=== PATIENT | male | born 2005 | race Caucasian/White ===

== ENCOUNTER 2024-06-12 09:36 | Emergency (ER) | payer BC, SELFPAY ==
[2024-06-12 09:40] VITALS: BP 138/49; PULSE 79; RESP 16; TEMP 37.3; O2SAT 99; BMI 21.6
[2024-06-12 09:54] LABS: Appearance Urine Clear (Clear); Bilirubin Urine Negative (Negative); Blood Urine Trace-intact (Negative); Color Urine Yellow (Yellow); Glucose Urine Negative (Negative); Ketones Urine Negative (Negative); Leukocyte Esterase Urine Negative (Negative); Nitrite Urine Negative (Negative); Protein Urine Negative (Negative); Specific Gravity Urine 1.015 (1.000-1.030); Urobilinogen Urine 0.2 (0.2-1.0)
--- NOTE | 2024-06-12 09:56 | ED_ITS ---
HPI - General Adult General Chief complaint: Urogenital Problems, Male Stated complaint: Blood in urine with pain Time Seen by Provider: 06/12/24 09:46 History of Present Illness HPI narrative: This 18-year-old male comes in reporting dysuria symptoms including pain with voiding urine and now reports hematuria. He reports some pain up into his abdomen also. He states that he did have some nausea with 1 vomiting episode. He does not have any personal or family history of kidney stones that he knows of. He has otherwise been in good health. Related Data Home Medications ?Medication ?Instructions ?Recorded ?Confirmed omeprazole 20 mg capsule,delayed 20 mg PO DAILY 06/12/24 06/12/24 release sucralfate 1 gram tablet 1 g PO QID 06/12/24 06/12/24 Previous Rx's ?Medication ?Instructions ?Recorded ketorolac 10 mg tablet 10 mg PO Q8H 5 days #15 tabs 06/12/24 ondansetron HCl 4 mg tablet 4 mg PO Q6H #10 tabs 06/12/24 Allergies Allergy/AdvReac Type Severity Reaction Status Date / Time amoxicillin Allergy Intermediate Verified 06/12/24 09:43 Review of Systems Status of ROS: Reports: 10 or more systems reviewed and unremarkable except as noted in History and below Narrative: Constitutional: No fevers, no weight gain or loss. Eyes: No discharge. No vision changes. HENT: No congestion, no sore throat, no ear pain. Cardiovascular: No chest pain, no palpitations. Respiratory: No shortness of breath, no wheezes, no cough. Gastrointestinal: No diarrhea. Abdominal pain with nausea and vomiting. Genitourinary: Increased frequency with hematuria. Musculoskeletal: Normal range of motion. Skin: No rashes, no pruritis. Neurological: No dizziness, weakness, sensory change, speech change. Endo/Heme/Allergies: No bruising or bleeding. No polydipsia. Pysch: no suicidality, no anxiety, no insomnia. All other systems reviewed and are negative. PFSH PFSH Social History Smoking Status: Current every day smoker How often do you have a drink containing alcohol: never AUDIT-C Alcohol total score: 0 Non-prescribed substance use: marijuana (any form) Exam Narrative: Exam Narrative: Constitutional: Well-developed, well-nourished, no acute distress. HEENT: Normocephalic, atraumatic. Neck: Normal range of motion. Nontender. Supple. Heart: Regular. No murmurs. Normal rate. Intact distal pulses. Lungs: Clear to auscultation. No chest discomfort. No wheezes, rhonchi, or rales. Abdomen: Normal bowel sounds. Lower abdominal pain. No rebound tenderness. Genitalia: Deferred. Back: No midline tenderness. Normal range of motion. Extremities: Normal range of motion. No injury. Skin: Intact. No rash. Warm. No erythema or pallor. Neurologic: No altered sensation. No weakness. Alert and oriented. Psychiatric: No suicidality. No anxiety or depression. No insomnia. Nursing notes and vitals signs are reviewed. Const: Vital Signs, click to edit/add: Vital Signs - 24 hr 06/12/24 09:40 Temperature 99.1 F Pulse Rate [Pulse Oximeter] 79 Respiratory Rate 16 Blood Pressure [Ri ght Upper Arm] 138/49 L Pulse Oximetry 99 Oxygen Delivery Me thod Room Air Course Vital Signs Vital signs: Initial Vital Signs Temperature 99.1 F 06/12/24 09:40 Temperature Source Temporal Artery Scan 06/12/24 09:40 Pulse Rate 79 06/12/24 09:40 Respiratory Rate 16 06/12/24 09:40 Blood Pressure 138/49 L 06/12/24 09:40 Blood Pressure Mean 78 06/12/24 09:40 Blood Pressure Position Supine 06/12/24 09:40 Pulse Oximetry 99 06/12/24 09:40 Oxygen Delivery Method Room Air 06/12/24 09:40 Vital Signs Temperature 99.1 F 06/12/24 09:40 Pulse Rate 79 06/12/24 09:40 Respiratory Rate 16 06/12/24 09:40 Blood Pressure 138/49 L 06/12/24 09:40 Pulse Oximetry 99 06/12/24 09:40 Oxygen Delivery Method Room Air 06/12/24 09:40 Temperature 99.1 F 06/12/24 09:40 Pulse Rate 79 06/12/24 09:40 Respiratory Rate 16 06/12/24 09:40 Blood Pressure 138/49 L 06/12/24 09:40 Pulse Oximetry 99 06/12/24 09:40 Oxygen Delivery Method Room Air 06/12/24 09:40 Medical Decision Making MDM Narrative Medical decision making narrative: This patient comes in reporting abdominal pain and did have some hematuria a about midway through voiding urine this morning. Urinalysis here shows no sign of infection or microscopic hematuria. He does not have a history of kidney stones. He it does report abdominal pain and states that he has pain down into his scrotum. On exam he is not showing any signs or symptoms that are suspicious for torsion. He did have CT scan of the abdomen and pelvis and this returns also with reassuring findings. This patient is okay to be discharged home. I did describe signs or symptoms that if they should occur he should return for re-evaluation. I did provide a prescription for Toradol and Zofran. Lab Data Labs: Lab Results 06/12/24 Range/Units 09:47 Urine Color Yellow (Yellow) Urine Appearance Clear (Clear) Urine pH 7.0 (5.0-8.5) Ur Specific [place] 1.015 (1.000-1.030) Urine Protein Negative (Negative) Urine Glucose (UA) Negative (Negative) Urine Ketones Negative (Negative) Urine Blood Trace-intact A (Negative) Urine Nitrite Negative (Negative) Urine Bilirubin Negative (Negative) Urine Urobilinogen 0.2 (0.2-1.0) Ur Leukocyte Esterase Negative (Negative) Urine RBC 0-2 (0-2) Urine WBC 0-2 (0-5) Ur Squamous Epith Cells Few (None-Few) Urine Bacteria None (None) Imaging Data CT scan - abdomen: Radiologist's impression: Trace free fluid in the pelvis of uncertain etiology, but can be a normal finding; otherwise, no CT evidence of an acute process involving the abdomen or pelvis. Discharge Plan Discharge Clinical Impression: Gross hematuria, Abdominal pain Patient Disposition: Home, Self-Care Condition: Stable Additional Instructions: Take medications as needed and indicated. Follow up with MD or return if worsening symptoms occur. Prescriptions: New ondansetron HCl 4 mg tablet 4 mg PO Q6H Qty: 10 0RF ketorolac 10 mg tablet 10 mg PO Q8H 5 Days Qty: 15 0RF No Action sucralfate 1 gram tablet 1 g PO QID omeprazole 20 mg capsule,delayed release(DR/EC) 20 mg PO DAILY Follow Up/Referrals: Provider,Not a Local [Primary Care Provider] - Stand Alone Forms: [employer] Info Instructions
[2024-06-12 10:43] LABS: RBC Urine 0-2 (0-2)
[2024-06-12 10:44] LABS: Squamous Epithelial Cell Urine Few (None-Few); WBC Urine 0-2 (0-5)
--- NOTE | 2024-06-12 11:02 | CRLHL7_ITS ---
For Patients: As a result of the Century Cures Act, medical imaging exams and procedure reports are released immediately into your electronic medical record. You may view this report before your referring provider. If you have questions, please contact your health care provider. Indication: abdomen pain, hematuria Technique: CT abdomen/pelvis without IV contrast Comparison: None Findings: Lower thorax: Unremarkable Abdomen/pelvis: The liver, gallbladder and biliary system, spleen, pancreas, and bilateral adrenal glands are unremarkable in appearance. The kidneys are normal in size. No obvious renal masses/lesions. No renal calculi or hydroureteronephrosis. The bladder is unremarkable in appearance. The seminal vesicles, prostate, and visualized external genitalia are unremarkable in appearance. Trace free fluid in the pelvis. There is no evidence of bowel obstruction or inflammation. The appendix is within normal limits in appearance. Few colonic diverticula without CT evidence of acute diverticulitis. No free air. No abdominopelvic lymphadenopathy. The vasculature is unremarkable. Soft tissue/musculoskeletal: Mild bilateral gynecomastia. Tiny fat containing umbilical hernia. The osseous structures are without acute abnormality. There are few Schmorl`s nodes seen throughout the spine. Impression: Trace free fluid in the pelvis of uncertain etiology, but can be a normal finding; otherwise, no CT evidence of an acute process involving the abdomen or pelvis. Please note that all CT scans at this facility use dose modulation, iterative reconstruction, and/or weight-based dosing when appropriate to reduce radiation dose to as low as reasonably achievable. Dictated by Juice Alonso MD @ 06/12/2024 11:44:28 AM (Electronically Signed)
== END 2024-06-12 12:00 | disposition home or self-care (01) ==
PROVIDERS: Emergency Provider Emergency Medicine Emergency Medical Services
DX: R31.0 Gross hematuria (principal); R10.9 Unspecified abdominal pain
CPT/HCPCS: 74176; 81001; 99284